=== PATIENT | female | born 1970 | race Caucasian/White ===

== ENCOUNTER 2018-06-24 15:40 | Outpatient (CLI) | payer BC ==
--- NOTE | 2018-06-24 17:33 | RAD ---
CHEST TWO VIEWS: 06/24/18 The heart is normal in size and the lungs are clear. No infiltrate or effusion was seen. There is no vascular congestion or edema. The bony structures appear normal. IMPRESSION: No acute thoracic finding. POS: HOME
== END 2018-06-24 15:41 | disposition home or self-care (01) ==
LOC: BURRAD 15:40
PROVIDERS: ATTEND Physician Assistant
DX: R50.81 Fever presenting with conditions classified elsewhere (principal)
CPT/HCPCS: 71046